=== PATIENT | female | born 1970 ===

== ENCOUNTER 2020-11-27 06:22 | Day surgery (SDC) | payer OTHER | END 2020-11-27 19:00 | disposition home or self-care (01) | LOC: CIR.AMB 06:22 | PROVIDERS: ATTEND Obstetrics & Gynecology | DX: D26.1 Other benign neoplasm of corpus uteri (principal); Z20.822 Contact with and (suspected) exposure to COVID-19 ==

== ENCOUNTER 2022-10-25 10:15 | Inpatient (IN) | payer OTHER ==
[~2022-10-25] VITALS: Ht 154.9 cm; Wt 68.0 kg
== END 2022-10-30 16:43 | disposition home or self-care (01) | DRG 743 ==
LOC: OB/GYN 10-28 05:33 → O/R 10-28 05:33 → OB/GYN 10-28 10:15
PROVIDERS: ADMIT Obstetrics & Gynecology; ATTEND Obstetrics & Gynecology
PROC: 0UT70ZZ Resection of Bilateral Fallopian Tubes, Open Approach (ICD-10-PCS; 2022-10-28)
PROC: 0UT90ZZ Resection of Uterus, Open Approach (ICD-10-PCS; principal; 2022-10-28 09:30)
DX: D25.1 Intramural leiomyoma of uterus (principal); D25.2 Subserosal leiomyoma of uterus; N72 Inflammatory disease of cervix uteri; N83.01 Follicular cyst of right ovary; N83.02 Follicular cyst of left ovary; Z20.822 Contact with and (suspected) exposure to COVID-19